=== PATIENT | male | born 1985 | race African-American/Black ===

== ENCOUNTER 2020-07-05 11:46 | Emergency (ER) | payer MEDICAID ==
[~2020-07-05] VITALS: Ht 188 cm; Wt 86.4 kg
[~2020-07-05 11:46] MED LIST: NOCURR
[2020-07-05] MEDS ORDERED: IBUP-2071 PO (11:58)
[2020-07-05] MEDS ORDERED: PERCT PO (11:58)
[2020-07-05] MEDS ORDERED: KETOROLAC TROMETHAMINE 10 MG TABLET PO ONE (13:15)
[2020-07-05 14:16] VITALS: BP 132/88
== END 2020-07-05 14:22 | disposition home or self-care (01) ==
LOC: EMS 11:46
DX: K06.8 Other specified disorders of gingiva and edentulous alveolar ridge (principal); R51.9 Headache, unspecified; F12.90 Cannabis use, unspecified, uncomplicated; Z20.828 Contact with and (suspected) exposure to other viral communicable diseases